=== PATIENT | male | born 1990 | race Caucasian/White ===

== ENCOUNTER 2020-01-17 12:48 | Emergency (ER) | payer OTHER ==
[~2020-01-17] VITALS: Ht 172.7 cm; Wt 63.5 kg
[2020-01-17 13:49] LABS: HEMATOCRIT 32.3 % (42.0-52.0); HEMOGLOBIN 11.3 gm/dL (14.0-18.0); MCH 30.9 pg (26.0-34.0); MCHC 35.2 g/dL (28.0-37.0); MCV 87.9 fL (80.0-100.0); MPV 6.9 fl. (7.2-11.1); NUCLEATED RBCS 0 /100WBC; PLATELET COUNT* 285 thou/uL (150-400); RBC 3.67 mil/uL (4.50-6.00); WBC 8.1 thou/uL (4.0-11.0)
[2020-01-17 13:58] LABS: CALCIUM 8.7 mg/dL (8.5-10.1); CREATININE 1.2 mg/dL (0.6-1.3); POTASSIUM 3.6 mmol/L (3.5-5.1)
[2020-01-17 14:02] LABS: ALBUMIN 2.8 g/dL (3.4-5.0); TOTAL BILIRUBIN 0.6 mg/dL (<0.1-1.0); TOTAL PROTEIN 7.3 g/dL (6.4-8.2)
[2020-01-17 14:15] LABS: ABSOLUTE EOSINOPHILS 0.1 thou/uL (0.0-0.7); ABSOLUTE LYMPHOCYTES 0.1 thou/uL (0.8-5.3); ABSOLUTE MONOCYTES 0.2 thou/uL (0.0-1.2); ABSOLUTE NEUTROPHILS 7.8 thou/uL (1.6-8.1); PLATELET ESTIMATE ADEQUATE
[2020-01-17 14:18] LABS: INFLUENZA A ANTIGEN Negative (Negative); INFLUENZA B ANTIGEN Negative (Negative)
[2020-01-17 14:25] LABS: URINE BLOOD NEGATIVE (Negative); URINE CLARITY CLEAR; URINE COLOR YELLOW; URINE GLUCOSE-RANDOM NEGATIVE (Negative); URINE KETONES 2+ (Negative); URINE LEUKOCYTES-REFLEX NEGATIVE (Negative); URINE NITRITE-REFLEX NEGATIVE (Negative); URINE PROTEIN 1+ (Negative)
[2020-01-17 14:26] LABS: ICTOTEST (BILI CONFIRMATORY) Negative (Negative); URINE BILIRUBIN 1+ (Negative)
[2020-01-17 14:34] LABS: MUCUS 4-6 Moderate strn/LPF (None Seen)
[2020-01-17 14:35] LABS: HYALINE CASTS 0-3 Few /LPF (None Seen)
[2020-01-17 14:36] LABS: BACTERIA-REFLEX None Seen /HPF (None Seen); CRYSTALS None Seen /LPF (None Seen); SQUAMOUS 0-3 Few /LPF (0-3); URINE RBC 0-2 Rare /HPF (0-2); URINE WBC-REFLEX 6-15 Few /HPF (0-5)
[2020-01-17] MEDS ORDERED: ZPAK PO (15:27)
[2020-01-17] MEDS ORDERED: ZOFRAN ODT4 MG PO (15:32)
[2020-01-17 15:48] VITALS: BP 115/61
[2020-01-18] MEDS ORDERED: REGLAN10 MG PO (23:22)
== END 2020-01-17 15:49 | disposition home or self-care (01) ==
LOC: M.ERS 12:48
PROVIDERS: Nurse Practitioner Psychiatric/Mental Health
DX: J18.9 Pneumonia, unspecified organism (principal); Z20.828 Contact with and (suspected) exposure to other viral communicable diseases; N50.811 Right testicular pain; R59.1 Generalized enlarged lymph nodes

== ENCOUNTER 2020-01-18 20:50 | Emergency (ER) | payer OTHER ==
[~2020-01-18] VITALS: Ht 172.7 cm; Wt 56.7 kg
[~2020-01-18 20:50] MED LIST: ZOFRAN ODT4 MG PO; ZPAK PO
[2020-01-18 21:50] LABS: HEMATOCRIT 33.9 % (42.0-52.0); HEMOGLOBIN 11.8 gm/dL (14.0-18.0); MCH 30.8 pg (26.0-34.0); MCHC 34.9 g/dL (28.0-37.0); MCV 88.1 fL (80.0-100.0); MPV 7.6 fl. (7.2-11.1); NUCLEATED RBCS 0 /100WBC; RBC 3.85 mil/uL (4.50-6.00); RDW-CV 12.9 % (10.5-14.5); WBC 10.7 thou/uL (4.0-11.0)
[2020-01-18 21:52] LABS: PLATELET COUNT* 387 thou/uL (150-400)
[2020-01-18 21:55] LABS: CALCIUM 9.3 mg/dL (8.5-10.1); CREATININE 1.4 mg/dL (0.6-1.3); POTASSIUM 3.7 mmol/L (3.5-5.1)
[2020-01-18 21:59] LABS: ALBUMIN 2.8 g/dL (3.4-5.0); TOTAL BILIRUBIN 0.5 mg/dL (<0.1-1.0); TOTAL PROTEIN 7.8 g/dL (6.4-8.2)
[2020-01-18 22:43] LABS: ABSOLUTE LYMPHOCYTES 0.4 thou/uL (0.8-5.3); ABSOLUTE MONOCYTES 0.3 thou/uL (0.0-1.2)
[2020-01-18 22:44] LABS: PLATELET ESTIMATE ADEQUATE
[2020-01-18] MEDS ORDERED: REGLAN10 MG PO (23:22)
[2020-01-18 23:29] VITALS: BP 111/70
== END 2020-01-18 23:30 | disposition home or self-care (01) ==
LOC: M.ERS 20:50
PROVIDERS: Emergency Medicine
DX: J18.9 Pneumonia, unspecified organism (principal); R11.2 Nausea with vomiting, unspecified; R10.13 Epigastric pain; R10.12 Left upper quadrant pain

== ENCOUNTER 2020-01-19 06:29 | Inpatient (IN) | payer OTHER ==
[~2020-01-19] VITALS: Ht 177.8 cm; Wt 60.3 kg
--- NOTE | ~2020-01-19 | CON ---
[address] [address] CONSULTATION Name: LAKEISHA JERONIMO Room: [address] IN .R.#: [id number] Admission: 01/19/20 Attend Phys: Andrade Dallas Discharge: Date of : 89 Report #: [id number] THIS REPORT FOR: //name// cc: ENRIQUE Cunningham family physician/PCP ENRIQUE - Marisa family physician/PCP ~ THIS REPORT FOR: //name// CC: ENRIQUE physician/PCP Mariposa Carvajal DATE OF SERVICE: 01/19/2020 CONSULT REQUESTED BY: Ron Haddad MD INDICATION FOR CONSULTATION: Pulmonary infiltrates. HISTORY OF PRESENT ILLNESS: A 29-year-old gentleman. He has no history of previous cardiac, respiratory or kidney disease. The patient reports that he was with friends this weekend at a [place]. The patient reported that a couple of days later, he started having significant symptoms. He has had a cough, but not much sputum. There is increase in shortness of breath. He has had a high-grade fever with chills. He has had significant nausea and vomiting and for the last couple of days, he has not had any food down. He says that it does cause him to have pain to take a deep breath. There is no swelling of lower extremities. There is no calf pain. He answers to the negative for 12 questions for review of systems except as mentioned above. He has had some abdominal pain though. PAST MEDICAL HISTORY: Hydrocele, right hip surgery. SOCIAL HISTORY: He has used marijuana. No other illegal drug use. No history of smoking. Rare alcohol use. ALLERGIES: No known drug allergies. FAMILY HISTORY: There is no pertinent family history. He was with friends as above recently when symptoms started soon after. However, there is no known contact with YAMINI-Terrie. CURRENT MEDICATIONS: List in [employer] reviewed. PHYSICAL EXAMINATION: GENERAL: He is alert, awake and oriented, does not appear to be in any distress. He had a bucket beside him because he has been having vomiting. VITAL SIGNS: Has a pulse of 104 and a blood pressure of 102/71. He is maintaining O2 saturation in the mid 90s [place] [address] CONSULTATION Name: LAKEISHA JERONIMO Room: [address]#: [id number] Admission: 01/19/20 Attend Phys: Andrade Dallas Discharge: Date of : 89 Report #: [id number] Respiratory rate is mildly elevated to 20. He is afebrile with a temperature of 37.9. He had a high-grade fever of 38.3 earlier. HEENT: Head is normocephalic and atraumatic. NECK: He does have some swelling and pain on the right side of his neck. There is mild erythema of the right neck as well. CHEST: Symmetrical expansion on inspection and palpation. On auscultation, there are significant rales at bilateral lung bases, some upper mid zones. HEART: Regular. There is no murmur. ABDOMEN: Soft and nontender. EXTREMITIES: Lower extremities show no edema, no calf tenderness. SKIN: Dry and intact. NEUROLOGICAL: He does move all extremities bilaterally equally and spontaneously with no focal deficit identified. LABORATORY DATA: The patient's COVID-19 antigen was negative, the PCR is pending. CBC and chemistries are in [email or web address]. These are reviewed. Elevation in creatinine to 1.4 this morning noted. Toxicology screen was positive for marijuana. Urinalysis is abnormal, but does not show nitrite and his leukocyte esterase negative. CT of the abdomen and pelvis report is in [employer]. This was reviewed. I reviewed the lower chest films which show extensive ground-glass infiltrates bilaterally also reviewed. ASSESSMENT/PLAN: 1. Extensive bilateral ground-glass infiltrates/suspected COVID-19. While other types of pneumonia can also lead to this picture, particularly for atypical organisms. I have a strong suspicion of COVID-19, PCR is pending. Even if this is negative, we will need to see the clinical picture and see if a repeat testing is indicated. Fully agree with dexamethasone. The patient is a potential candidate for remdesivir as well. Should he fail to improve or deteriorate and require supplemental oxygen, I recommend having a very low threshold of considering remdesivir. I also fully agree with Zithromax and ceftriaxone. We will continue with the same in fact I ordered him a dose of additional 1 gram of ceftriaxone now as well. We will order more cultures and serologies are also. 2. Right neck swelling/chest pain with respiration and coughing. I considered ordering a CTA chest as well as CT neck with IV dye. Held off because the patient's creatinine was elevated this morning and the patient has already received IV dye with a CT of the abdomen and pelvis. I ordered an ultrasound of the right neck now. We will review this. Subsequently, I perhaps will be inclined to consider ordering full dose anticoagulation in the next 24-48 hours. I will consider obtaining a CAT scan of the neck as well as a CTA chest if his D-dimer does come back elevated, which I have ordered and his creatinine improves. 3. Intractable nausea and vomiting. The primary suspicion is COVID-19. Certainly there are other etiologies as well. We will check a lipase as well. 4. Acute renal insufficiency. I would like to repeat electrolytes and [facility] [address] [place] [address] CONSULTATION Name: LAKEISHA JERONIMO Room: [address] IN M.R.#: [id number] Admission: 01/19/20 Attend Phys: Andrade Dallas Discharge: Date of : 89 Report #: [id number] creatinine now and see where we stand. We will adjust IV fluids accordingly. Agree with keeping him well hydrated. Thanks for this consultation. By: [id number] Motley MD /nt
[~2020-01-19 06:29] MED LIST changes: +REGLAN10 MG PO
[2020-01-19 06:35] VITALS: BP 116/72
[2020-01-19 06:51] LABS: HEMATOCRIT 31.6 % (42.0-52.0); MCH 30.7 pg (26.0-34.0); MCHC 34.9 g/dL (28.0-37.0); MCV 87.9 fL (80.0-100.0); MPV 6.9 fl. (7.2-11.1); NUCLEATED RBCS 0 /100WBC; PLATELET COUNT* 375 thou/uL (150-400); RDW-CV 13.1 % (10.5-14.5); WBC 11.1 thou/uL (4.0-11.0)
[2020-01-19 07:02] LABS: CALCIUM 8.7 mg/dL (8.5-10.1); CREATININE 1.4 mg/dL (0.6-1.3); POTASSIUM 3.5 mmol/L (3.5-5.1)
[2020-01-19 07:49] LABS: ABSOLUTE LYMPHOCYTES 0.4 thou/uL (0.8-5.3); ABSOLUTE MONOCYTES 0.2 thou/uL (0.0-1.2); ABSOLUTE NEUTROPHILS 10.4 thou/uL (1.6-8.1); ANISOCYTOSIS 1+; PLATELET ESTIMATE ADEQUATE; POIKILOCYTOSIS 1+
--- NOTE | 2020-01-19 08:15 | NUR ---
FABRIZIO NOTIFIED UPON PT RETURN FROM CT AND THAT PT IS IN THE RESTROOM
[2020-01-19 09:38] VITALS: BP 110/71
[2020-01-19 09:46] LABS: URINE BLOOD TRACE (Negative); URINE CLARITY CLEAR; URINE COLOR YELLOW; URINE GLUCOSE-RANDOM NEGATIVE (Negative); URINE LEUKOCYTES-REFLEX NEGATIVE (Negative); URINE NITRITE-REFLEX NEGATIVE (Negative); URINE PROTEIN 1+ (Negative); URINE UROBILINOGEN 0.2 E.U./dl (0.2-1.0)
[2020-01-19 09:51] LABS: ICTOTEST (BILI CONFIRMATORY) Negative (Negative); URINE BILIRUBIN 1+ (Negative); URINE KETONES 3+ (Negative)
[2020-01-19 10:22] VITALS: BP 102/71
--- NOTE | 2020-01-19 12:21 | NUR ---
RECEIEVED REPORT FROM FABRIZIO RN IN ER OF EXPECED ADMISSION AT 0932- DX: INTRACTABLE N/V, PNA- PT ARRIVED TO UNIT VIA CART, SBA TO BED- PT NOTED TO BE A&O X4- CONT OF B/B- UP AD-EZIO IN ROOM, STEADY GAIT NOTED- LCTA IN UPPER LOBES, CRACKLES BASES-CONTINUIOUS DRY COUGH NOTED- VS 100.3 20 102/71 104 96% ON RA- O2 APPLIED AT 2L PER PT REQUEST FOR COMFORT- ABD SOFT/FLAT/TENDER TO TOUCH- BS HYPOACTIVE- N/V NOTED AT TIME OF ADMISSION- PRN ZOFRAN GIVEN AT 1142- IV NOTED TO LEFT FA INTACT, IVB COMPLETED AND IVF INFUSSING PRESCRIBED- STAT COVID TEST REPORTED TO BE NEGATIVE- PT PLACED IN ISOLATION PENDING PCR COVID TESTING- PULM CONSULT NOTED- CLEAR LIQUIDS IN PLACE ORDERED- PT DENIES ANY OPEN AREAS/WOUNDS- PT REPORTS PAIN 8/10 TO ABD- CALL LIGHT AND PERSONAL BELONGINGS WITH IN REACH- PT MAKES NEEDS KNOWN- ALL NEEDS MET AT THIS TIME-WCTM
[2020-01-19 15:49] LABS: AMP/METHAMP Negative (Negative); BARBITURATES Negative (Negative); BENZODIAZEPINES Negative (Negative); COCAINE Negative (Negative); METHADONE Negative (Negative); OPIATES Negative (Negative); PCP Negative (Negative); THC POSITIVE (Negative)
[2020-01-19 16:00] VITALS: BP 112/72
[2020-01-19 16:29] LABS: CALCIUM 8.4 mg/dL (8.5-10.1); CREATININE 1.2 mg/dL (0.6-1.3); MAGNESIUM 1.7 mg/dL (1.8-2.4); POTASSIUM 3.9 mmol/L (3.5-5.1)
[2020-01-19 16:34] LABS: INR 1.2; PROTIME 12.4 Seconds (9.20-11.50)
[2020-01-19 21:34] VITALS: BP 97/86
[2020-01-20 04:32] VITALS: BP 119/40
[2020-01-20 07:16] LABS: ABSOLUTE BASOPHILS 0.1 thou/uL (0.0-0.2); ABSOLUTE LYMPHOCYTES 0.4 thou/uL (0.8-5.3); ABSOLUTE MONOCYTES 0.3 thou/uL (0.0-1.2); ABSOLUTE NEUTROPHILS 9.7 thou/uL (1.6-8.1); BASOPHILS 0.6 %; HEMATOCRIT 29.4 % (42.0-52.0); HEMOGLOBIN 10.2 gm/dL (14.0-18.0); LYMPHOCYTES 3.7 %; MCH 30.7 pg (26.0-34.0); MCHC 34.8 g/dL (28.0-37.0); MCV 88.3 fL (80.0-100.0); MONOCYTES 2.7 %; MPV 6.8 fl. (7.2-11.1); NUCLEATED RBCS 0 /100WBC; PLATELET COUNT* 352 thou/uL (150-400); RBC 3.33 mil/uL (4.50-6.00); RDW-CV 13.3 % (10.5-14.5); WBC 10.4 thou/uL (4.0-11.0)
[2020-01-20 07:33] LABS: CALCIUM 8.2 mg/dL (8.5-10.1); CREATININE 1.1 mg/dL (0.6-1.3); TOTAL BILIRUBIN 0.3 mg/dL (<0.1-1.0); TOTAL PROTEIN 6.2 g/dL (6.4-8.2)
[2020-01-20 08:00] VITALS: BP 104/77
--- NOTE | 2020-01-20 11:01 | NUR ---
ASSUMED CARE OF PATIENT THIS AM AT 0730. PATIENT IS ALERT AND ORIENTED X 4. HE DENIES PAIN,N AND VOMITING THIS AM. PATIENT ASSISTED UP TO THE SHOWER. HE HAS BEEN IN ISOLATION FOR POSSIBLE COVID. IV FLUIDS INFUSING PER ORDER. IV ANTIBIOTICS CONTINUED. WILL CONTINUE TO MONITOR COMFORT.
--- NOTE | 2020-01-20 11:26 | NUR ---
Called in to patients room admission assessment interview, pt in isolation. No answere at 08 am or 9:30 am.
[2020-01-20 20:00] VITALS: BP 114/75
--- NOTE | 2020-01-21 06:40 | NUR ---
ASSESSMENT COMPLETED AT BEDSIDE, PLEASE REFER TO CHARTING FOR DETAILS. MEDICATIONS ADMINISTERED PER MAR. PT HAD C/O N/V TREATED WITH PRN MEDICATIONS WITH NO RELIEF. PT HAD SHOWER X2 PT STATES THIS HELPS HIM WITH THE N/V. PT REMAINS ON CLEAR LIQUIDS, AND IV HYDRATION. PT IS UP AD EZIO IN ROOM AND IS CURRENTLY IN RECLINER WITH CALL LIGHT WITHIN.
[2020-01-21 07:35] LABS: HEMATOCRIT 27.7 % (42.0-52.0); HEMOGLOBIN 9.7 gm/dL (14.0-18.0); MCH 31.2 pg (26.0-34.0); MCHC 35.2 g/dL (28.0-37.0); MCV 88.7 fL (80.0-100.0); MPV 7.5 fl. (7.2-11.1); NUCLEATED RBCS 0 /100WBC; PLATELET COUNT* 375 thou/uL (150-400); RBC 3.12 mil/uL (4.50-6.00); RDW-CV 13.8 % (10.5-14.5); WBC 12.5 thou/uL (4.0-11.0)
[2020-01-21 07:53] LABS: CALCIUM 8.3 mg/dL (8.5-10.1); CREATININE 1.1 mg/dL (0.6-1.3); POTASSIUM 4.4 mmol/L (3.5-5.1); TOTAL BILIRUBIN 0.2 mg/dL (<0.1-1.0)
[2020-01-21 08:15] VITALS: BP 110/68
[2020-01-21 08:50] LABS: ABSOLUTE LYMPHOCYTES 0.8 thou/uL (0.8-5.3); ABSOLUTE MONOCYTES 0.1 thou/uL (0.0-1.2); ABSOLUTE NEUTROPHILS 11.6 thou/uL (1.6-8.1); PLATELET ESTIMATE ADEQUATE
--- NOTE | 2020-01-21 08:51 | NUR ---
CM COMPLETED INITIAL ASSESSMENT TO DISCUSS D/C PLANNING. CM DID NOT GO INTO PT'S ROOM D/T COVID PENDING. PT DID NOT ANSWER HIS ROOM PHONE. CM CONTACT PT'S STEP-MOM, DAMIR. PT LIVES [place]. PT IS ACTIVE AND INDEPENDENT W/CARES. PT IS EMPLOYEED AND DOES NOT HAVE A PCP. PT HAS 0 DMES. NO HX W/SNF.
[2020-01-21 12:00] VITALS: BP 126/84
[2020-01-21 13:50] VITALS: BP 110/70
--- NOTE | 2020-01-21 15:03 | NUR ---
pT C/O MIDSTERNAL BURNING CHEST PAIN. PT STATES "it started about 10 minutes ago. it is starting to go away" when asked pt denies history of cardiac disease, but states he has history of pleurisy but says "it didn't feel the same" dr nazario notified. see order for gi cocktail and protonix.
--- NOTE | 2020-01-21 15:06 | NUR ---
2410 pt was updated on conversation I had with dr nazario regarding his chest pain. pt instructed that 1 x dose of gi cocktail was available and that he is currently on protonix to decrease acid formation. pt verbalizes understanding but declines gi cocktail at this time
[2020-01-21 17:42] VITALS: BP 117/79
--- NOTE | 2020-01-21 19:34 | NUR ---
pt has remained alert, oriented and cooperative with staff. c/o nausea without emisis the majority of shift. remains on clear liquid diet. pt declines zofran/phenergan for relief of nausea. iv restart x 1. pt treated at end of shift for c/o nausea
[2020-01-21 20:00] VITALS: BP 117/83
[2020-01-22 04:00] VITALS: BP 123/82
[2020-01-22 05:06] LABS: ABSOLUTE LYMPHOCYTES 0.4 thou/uL (0.8-5.3); ABSOLUTE MONOCYTES 0.3 thou/uL (0.0-1.2); ABSOLUTE NEUTROPHILS 10.3 thou/uL (1.6-8.1); BASOPHILS 0.1 %; HEMATOCRIT 26.3 % (42.0-52.0); LYMPHOCYTES 3.9 %; MCH 30.4 pg (26.0-34.0); MCHC 34.4 g/dL (28.0-37.0); MCV 88.3 fL (80.0-100.0); MONOCYTES 2.9 %; MPV 7.2 fl. (7.2-11.1); NUCLEATED RBCS 0 /100WBC; PLATELET COUNT* 359 thou/uL (150-400); POLYS 93.1 %; RBC 2.98 mil/uL (4.50-6.00); RDW-CV 13.6 % (10.5-14.5)
[2020-01-22 05:33] LABS: CALCIUM 8.2 mg/dL (8.5-10.1); MAGNESIUM 2.2 mg/dL (1.8-2.4); POTASSIUM 4.4 mmol/L (3.5-5.1)
--- NOTE | 2020-01-22 05:36 | NUR ---
ASSESSMENT COMPLETED AT BEDSIDE, PLEASE REFER TO CHARTING FOR DETAILS. MEDICATIONS ADMINISTERED PER MAR. PT CONTIUNES TO HAVE N/V. PARTIAL RELIEF FROM ATIVAN. PT ALSO CONTINUES TO TAKE SHOWERS THROUGH OUT SHIFT TO HELP WITH N/V. PT HAS HAD POOR SLEEP PATTERNS, ADMISINISTERED SLEEP AID WITH LITTLE EFFECT. PT REMAINS IN ENHANCED PERCAUTIONS, CALL LIGHT WITHIN REACH.
[2020-01-22 08:00] VITALS: BP 128/70
--- NOTE | 2020-01-22 12:18 | NUR ---
Pt covid pending. Not currently requiring any o2. Pt is not eligible for [place] [facility] per [facility].
--- NOTE | 2020-01-22 16:59 | NUR ---
pt has remained alert, oriented x 4 and cooperative with staff. regular nonlabored respirations. no c/o or indication of respiratory distress. pt remains on clear liquid diet. medicated x 1 for c/o nausea. pt removed from enhanced isolation per dr graves. echo has been done and pt is currently being see by dr raymond. report called to zuly cox on med surg unit. reviewed admitting diagnosis, vital signs and am nursing assessment.
--- NOTE | 2020-01-22 17:01 | 2DMMODE ---
[place] [address] 2 D/M-MODE ECHOCARDIOGRAM Name: TODD JERONIMO Room: [address] [facility]#: [id number] Admission: 01/19/20 Attend Phys: Mariposa Carvajal Discharge: Date of : 89 Date of Service: 01/22/20 1701 Report #: [id number] THIS REPORT FOR: cc: FAM - No family physician/PCP FAM - No family physician/PCP Todd Funk MD [facility] ~ APPROVED REPORT Study performed: 01/22/2020 15:21:28 EXAM: Comprehensive 2D, Doppler, and color-flow Echocardiogram Patient Location: In-Patient Room #: [facility] Status: routine BSA: 1.75 HR: 52 bpm BP: 123/82 mmHg Rhythm: NSR Other Information Study Quality: Good Indications Dyspnea 2D Dimensions IVSd: 8.45 (7-11mm) LVOT Diam: 19.97 (18-24mm) LVDd: 43.10 mm PWd: 7.62 (7-11mm) Ascending Ao: 28.70 (22-36mm) LVDs: 32.04 (25-40mm) Aortic Root: 31.49 mm Volumes Left Atrial Volume (Systole) LA ESV Index: 31.30 mL/m2 Aortic Valve AoV Peak Grady.: 1.28 m/s AO Peak Gr.: 6.59 mmHg LVOT Max P.71 mmHg AO Mean Gr.: 3.23 mmHg LVOT Mean P.01 mmHg LVOT Max V: 1.08 m/s AO V2 VTI: 26.79 cm LVOT Mean V: 0.64 m/s MISAEL (VTI): 2.67 cm2 LVOT V1 VTI: 22.[place] [address] 2 D/M-MODE ECHOCARDIOGRAM Name: TODD JERONIMO Room: [address]#: [id number] Admission: 01/19/20 Attend Phys: Mariposa Carvajal Discharge: Date of : 89 Date of Service: 01/22/20 1701 Report #: [id number] Mitral Valve E/A Ratio: 3.30 MV Decel. Time: 213.41 ms MV E Max Grady.: 0.93 m/s MV PHT: 61.89 ms MVA (PHT): 3.55 cm2 TDI E/Lateral E': 4.43 E/Medial E': 5.81 Medial E' Grady.: 0.16 m/s Lateral E' Grady.: 0.21 m/s Pulmonary Valve PV Peak Grady.: 1.11 m/s PV Peak Gr.: 4.92 mmHg Tricuspid Valve RAP Estimate: 5.00 mmHg TR Peak Gr.: 21.80 mmHg RVSP: 26.00 mmHg PA Pressure: 26.00 mmHg Left Ventricle The left ventricle is normal size. There is normal LV segmental wall motion. There is normal left ventricular wall thickness. Left ventricular systolic function is normal. LVEF is 55-60%. The left ventricular diastolic function is normal. Right Ventricle Right ventricle is dilated. The right ventricular systolic function is normal. Atria The left atrium size is normal. The right atrium size is normal. Aortic Valve The aortic valve is normal in structure. No aortic regurgitation is present. There is no aortic valvular stenosis. Mitral Valve The mitral valve is normal in structure. Mild mitral regurgitation. No evidence of mitral valve stenosis. Tricuspid Valve The tricuspid valve is normal in structure. Mild tricuspid regurgitation. [place] [address] 2 D/M-MODE ECHOCARDIOGRAM Name: TODD JERONIMO Room: [address] [place] [facility]#: [id number] Admission: 01/19/20 Attend Phys: Mariposa Carvajal Discharge: Date of : 89 Date of Service: 01/22/20 1701 Report #: [id number] Pulmonic Valve The pulmonary valve is normal in structure. Trace pulmonic regurgitation. Great Vessels The aortic root is normal in size. IVC is normal in size and collapses >50% with inspiration. Pericardium There is no pericardial effusion. <Conclusion> The left ventricle is normal size. There is normal left ventricular wall thickness. Left ventricular systolic function is normal. LVEF is 55-60%. The left ventricular diastolic function is normal. Mild mitral regurgitation. Mild tricuspid regurgitation. No pulmonary hypertension. IVC is normal in size and collapses >50% with inspiration. <ELECTRONICALLY SIGNED> By: Todd Funk MD, FACC 01/22/201700 00 00 Todd Funk MD, FACC /INF
--- NOTE | 2020-01-22 17:11 | NUR ---
pt belongings packed. pt ambulated in company of communications officer to new room on 3rd floor
[2020-01-22 17:39] VITALS: BP 111/82
--- NOTE | 2020-01-22 19:28 | NUR ---
PT A&OX4 VSS. EPISODE OF N/V THIS EVENING SHORTLY AFTER ARRIVING ON UNIT. PRN ATIVAN ADMINISTERED WELL PANTOPRAZXOLE. IV TO LFA PATENT, DRESSING C/D/I. PT REQUESTS SHOWER TONINGHT. PT REMAINS ON CLEAR LIQUIDS TOLERATED. PT UP AD EZIO GAIT STEADY. PT TO BE NPO AFTER MIDNIGHT FOR SCOPE TOMORROW WITH GI. PT RESTS IN ROOM WITH CALL LIGHT IN REACH, WILL CONTINUE TO MONITOR.
[2020-01-22 20:00] VITALS: BP 109/65
[2020-01-22 23:06] LABS: MYCOPLASMA PNEUMONIA IgG <100 U/mL (0-99); MYCOPLASMA PNEUMONIA IgM <770 U/mL (0-769)
--- NOTE | 2020-01-23 07:38 | NUR ---
PATIENT TOOK TWO SHOWERS DURING THE NIGHT WANTING TO TAKE MORE. LINENS CHANGED EACH TIME. PT STRIPPED BED A THIRD TIME WANTING LINENS REPLACED. LINENS TAKEN TO ROOM AND PT TOLD SINCE HE WAS NOT SLEEPING IT WOULD BE A FEW MINUTES BEFORE THE WOULD BE REPLACED. PT BECAME ANGRY SAYING INDICATING WE FELT HE WAS A PAIN. PT REASSURED NO ONE FELT LIKE THIS. PT WANTED ARM WRAPPED SO HE COULD SHOWER A THIRD TIME. PT EDUCATED ON POSSIBILITY OF INFECTION THRU IV IF HE CONTINUED TO MESS WITH IV. DIRECTOR OF MATERIALS MANAGEMENT INFORMED AND SHE WAS SUPPORTIVE OF THIS DECISION. PT STATING HE NO LONGER WANTED SCAPALAMINE PATCH HE WAS STILL NAUSEATED. PT HAD TWO EPISODES OF CLEAR EMESIS, ONE WITH THREE SPECKS OF BLOOD. PT REFUSING ATIVAN SAYING IT DID NOT WORK HE VOMITED AFTER HAVING IT JUST PRIOR TO SHIFT CHANGE. PT ENCOURAGED TO TRY IT A SECOND TIME AND AGREED. PT SLEEPING IN CHAIR THE REST OF THE SHIFT. PT NPO SINCE MIDNIGHT.
[2020-01-23 08:20] VITALS: BP 112/64
[2020-01-23 09:46] LABS: ABSOLUTE LYMPHOCYTES 0.9 thou/uL (0.8-5.3); ABSOLUTE MONOCYTES 0.2 thou/uL (0.0-1.2); ABSOLUTE NEUTROPHILS 8.8 thou/uL (1.6-8.1); BASOPHILS 0.1 %; EOSINOPHILS 0.4 %; HEMATOCRIT 28.4 % (42.0-52.0); HEMOGLOBIN 9.8 gm/dL (14.0-18.0); LYMPHOCYTES 9.3 %; MCH 30.6 pg (26.0-34.0); MCHC 34.5 g/dL (28.0-37.0); MCV 88.8 fL (80.0-100.0); MPV 7.1 fl. (7.2-11.1); NUCLEATED RBCS 0 /100WBC; PLATELET COUNT* 412 thou/uL (150-400); POLYS 88.2 %; RDW-CV 13.4 % (10.5-14.5)
[2020-01-23 09:56] LABS: ALBUMIN 2.2 g/dL (3.4-5.0); CREATININE 1.1 mg/dL (0.6-1.3); POTASSIUM 3.7 mmol/L (3.5-5.1); TOTAL BILIRUBIN 0.4 mg/dL (<0.1-1.0); TOTAL PROTEIN 5.8 g/dL (6.4-8.2)
[2020-01-23 10:11] LABS: % SATURATION 19 % (20-39); IRON 24 ug/dL (50-175)
--- NOTE | 2020-01-23 14:00 | NUR ---
PT RETURNED TO UNIT FOLLOWING EGD.
[2020-01-23 16:00] VITALS: BP 103/65
--- NOTE | 2020-01-23 16:00 | NUR ---
PT.LIVES IN [place]. FOR SLIDING SCALE PAYMENT FOR FOLLOW UP -CAN CALL [facility][phone]. [employer]ED [employer].
[2020-01-23 20:00] VITALS: BP 92/50
--- NOTE | 2020-01-24 01:33 | NUR ---
INITAL ASSESMENT COMPLETED AT 1914. PT OUT OF SHOWER AT THAT TIME. T GIVE PO GEODON, IV ATIVAN AND IV PHENERGAN FOR TREATMENT OF NAUSEA. PT RECIEVING IV ATIVAN AND IV PHENERGA Q 6 HRS. PT HAD NUROUS REQUESTS AT START OF SHIFT. PT SLEEPING AFTER HS MEDS. CALL LIGHT IN REACH, PT DEMONSTRATES PROPER USE.
--- NOTE | 2020-01-24 04:43 | NUR ---
PT REFUSING TO ALLOW STAFF TO TAKE AM VITAL SIGNS. TECH UNCOVERED PT'S ARM TO PLACE BLOOD PRESSURE CUFF. PT WITHDREW ARM UNDER BLANKET AND WOULD NOT RESPOND WHEN ASKED TO EXPOSE ARM .
--- NOTE | 2020-01-24 05:05 | NUR ---
PT EXTREMELY SOMULANT AND DIFFICULT TO AROUSE. HOLDING AM LORAZEPAM AND PHENERGAN DUE TO HYPERSOMULANCE.
[2020-01-24 05:17] LABS: HEMATOCRIT 33.7 % (42.0-52.0); HEMOGLOBIN 11.3 gm/dL (14.0-18.0); MCHC 33.6 g/dL (28.0-37.0); MCV 89.3 fL (80.0-100.0); MPV 7.2 fl. (7.2-11.1); RBC 3.77 mil/uL (4.50-6.00); RDW-CV 13.5 % (10.5-14.5)
[2020-01-24 05:55] LABS: ALBUMIN 2.1 g/dL (3.4-5.0); CALCIUM 8.5 mg/dL (8.5-10.1); CREATININE 1.1 mg/dL (0.6-1.3); MAGNESIUM 2.3 mg/dL (1.8-2.4); TOTAL BILIRUBIN 0.5 mg/dL (<0.1-1.0)
[2020-01-24 06:04] LABS: POTASSIUM 4.7 mmol/L (3.5-5.1)
--- NOTE | 2020-01-24 06:24 | NUR ---
PT EXTREMELY SOMULAT THIS MORNINF AFTER RECIEVING PO GEODON, IV ATIVAN AND IV PHENERGAN. PT WAS AROUSABLE AND ALERT PRIOR TO MIDNIGHT DOSE. AT 0330 RT CAME FOR TREATMENT. PT WAS EXTREMELY DIFFICULT TO AROUSE. AM ATIVAN AND PHENERGAN TO GIVEN.
[2020-01-24 08:25] VITALS: BP 94/65
[2020-01-24 16:31] VITALS: BP 99/53
--- NOTE | 2020-01-24 16:58 | NUR ---
PATIENT UP AD EZIO THIS SHIFT. NO COMPLAINTS OF N/V OR PAIN. IV SL, SCHED ABX AND STEROID GIVEN ORDERED. SPOKE WITH DR. ALMARAZ AND YISSEL FOR REG DIET, TOLERATING. POSSIBLE DISCHARGE TO HOME TOMORROW.
[2020-01-24 20:26] VITALS: BP 110/53
[2020-01-25 04:17] LABS: HEMATOCRIT 31.5 % (42.0-52.0); HEMOGLOBIN 10.7 gm/dL (14.0-18.0); MCH 30.2 pg (26.0-34.0); MCHC 33.9 g/dL (28.0-37.0); MCV 89.1 fL (80.0-100.0); MPV 7.3 fl. (7.2-11.1); RBC 3.54 mil/uL (4.50-6.00); RDW-CV 13.4 % (10.5-14.5); WBC 14.8 thou/uL (4.0-11.0)
[2020-01-25 04:52] LABS: ALBUMIN 2.2 g/dL (3.4-5.0); CALCIUM 8.4 mg/dL (8.5-10.1); CREATININE 1.2 mg/dL (0.6-1.3); MAGNESIUM 1.9 mg/dL (1.8-2.4); TOTAL BILIRUBIN 0.4 mg/dL (<0.1-1.0)
--- NOTE | 2020-01-25 04:52 | NUR ---
PATIENT ALERT/ORIENTED X4. PT WITH SALINE LOCK IN LT FOREARM; ANTIBIOTICS INFUSING PER DR ORDER. PT REQUESTED PHENERGAN IV X1 FOR NAUSEA, LATER PT STATING HE WAS NOT NAUSEATED HE JUST WANTED SOMETHING TO PUT HIM TO SLEEP BECAUSE THE MELATONIN DID NOT WORK. PT UP AD EZIO IN ROOM; SHOWERED AND LINENS CHANGED X1. PT REQUESTED SEVERAL SNACKS THROUGHOUT THE NIGHT. TOLERATED WELL. PT DENIES PAIN. FREQUENTLY USED ITEMS AND CALL LIGHT WITHIN REACH. SIDERAILS UPX2. WILL CONTINUE TO MONITOR.
[2020-01-25 07:07] LABS: HIV-1/HIV-2 ANTIBODY Non Reactive (Non Reactive)
[2020-01-25 08:10] VITALS: BP 98/57
[2020-01-25] MEDS ORDERED: MIRALAX17 GM PO (09:45)
[2020-01-25] MEDS ORDERED: NEPHRO-VITE TA0.8 MG PO (09:45)
[2020-01-25] MEDS ORDERED: VENTOLIN HFA 1818 GM INH (09:45)
[2020-01-25] MEDS ORDERED: TRANSDERM-SCOP1 EACH TRANSDERM (09:45)
[2020-01-25] MEDS ORDERED: PROMS25 WY RECTAL (09:45)
[2020-01-25] MEDS ORDERED: PROTONIX 20 MG20 M1 PO (09:45)
[2020-01-25] MEDS ORDERED: IRON325 PO (09:45)
[2020-01-25] MEDS ORDERED: BENZONATATE100 MG PO (09:45)
[2020-01-25] MEDS ORDERED: BANOPHEN25 MG PO (09:45)
[2020-01-25 14:06] VITALS: BP 98/57
--- NOTE | 2020-01-25 14:40 | NUR ---
PATIENT DISCHARED TO HOME AT THIS TIME. TOLERATED REG DIET. PHENERGAN PRN GIVEN X 1 THIS AM. UP AD EZIO. IV DC'D, SCHED ABX RECEIVED THIS AM. PATIENT AMBULATED OUT WITH NURSING STAFF. VERBALIZED UNDERSTANDING OF PAPERWORK AND SCRIPTS SENT IN TO PHARMACY AND STEFANL CALLED IN NOTED.
--- NOTE | 2020-01-27 12:07 | PATH ---
[facility] [address] [place] [address] PATHOLOGY RPT PROCEDURE Name: TODD HERNÁNDEZ Room: [address] IN M.R.#: [id number] Admission: 01/19/20 Date of : 89 Discharge: 01/25/20 Report #: [id number] Path Case #: [id number] [facility] Accession Number: [id number] . 01 Material submitted: . PART A: stomach - GASTRIC BIOPSY FOR GASTRITIS PART B: esophagus - BIOPSY ESOPHAGUS IRREGULAR Z-LINE . 01 Clinical history: . INTRACTABLE N/V, PNA . 02 Diagnosis: A. Gastric biopsy: - Mild chronic gastritis suggesting reactive gastropathy (chemical gastritis), negative for Helicobacter pylori organisms and dysplasia. . B. Biopsy esophagus: - Benign esophageal and gastric/columnar types mucosa with moderate chronic inflammation typical of reflux, negative for goblet cells/diagnostic Hanson's metaplasia and dysplasia. (AGAPITO:paulette; 01/27/2020 . Special stain on A: H. pylori immuno QMS 01/27/2020 1125 Local . 02 Electronically signed: . Get Triana MD, Pathologist NPI- [id number] . 01 Gross description: . A. The specimen is received in formalin, labeled "Todd Hernández BX gastric" and consists of 4 fragments of pink-dye tissue measuring between 0.2 x 0.2 cm and 0.4 x 0.2 cm which are entirely submitted in A1. . B. The specimen is received in formalin, labeled "Todd Hernández BX esophagus" and consists of multiple fragments of dye tissue measuring 0.9 x 0.6 x 0.3 cm in aggregate which are entirely submitted in B1. (SDY; 01/26/2020) SYU/SYU 01/27/2020 1123 Local . 02 Pathologist provided ICD-10: K29.50, K20.9 . 02 CPT . 507709, 644370, [id number] Specimen Comment: A courtesy copy of this report has been sent to [phone] Specimen Comment: [address] [place] [address] PATHOLOGY RPT PROCEDURE Name: TODD HERNÁNDEZ Room: [address] IN .R.#: [id number] Admission: 01/19/20 Date of : 89 Discharge: 01/25/20 Report #: [id number] Path Case #: [id number] Specimen Comment: Report sent to / DR CASTRO Performed at: [address] [facility] [address], [place], [place] [address] MD Delfino Rajan MD Phone: [phone] Performed at: 02 [facility] [address] [address] [address], [place], [place] [id number] MD Get Triana MD Phone: [phone]
== END 2020-01-25 14:42 | disposition home or self-care (01) | DRG 391 ==
LOC: M.ERS 06:29 → M.TBA-ER 06:40 → M.2W 09:52 → M.3W 01-22 17:16
PROVIDERS: Emergency Medicine; Family Medicine; Internal Medicine; Internal Medicine Critical Care Medicine; Internal Medicine Gastroenterology; ADMIT Internal Medicine; ATTEND Internal Medicine
PROC: 0DB38ZX Excision of Lower Esophagus, Via Natural or Artificial Opening Endoscopic, Diagnostic (ICD-10-PCS; principal; 2020-01-23)
PROC: 0DB68ZX Excision of Stomach, Via Natural or Artificial Opening Endoscopic, Diagnostic (ICD-10-PCS; principal; 2020-01-23)
DX: K29.70 Gastritis, unspecified, without bleeding (principal); J18.9 Pneumonia, unspecified organism; R65.10 Systemic inflammatory response syndrome (SIRS) of non-infectious origin without acute organ dysfunction; Z68.1 Body mass index [BMI] 19.9 or less, adult; K62.5 Hemorrhage of anus and rectum; E86.0 Dehydration; F12.90 Cannabis use, unspecified, uncomplicated; R11.2 Nausea with vomiting, unspecified; N28.9 Disorder of kidney and ureter, unspecified; R63.4 Abnormal weight loss; D64.9 Anemia, unspecified; K21.0 Gastro-esophageal reflux disease with esophagitis; K44.9 Diaphragmatic hernia without obstruction or gangrene; K22.8 Other specified diseases of esophagus; Z20.828 Contact with and (suspected) exposure to other viral communicable diseases; T40.7X5A Adverse effect of cannabis (derivatives), initial encounter; Y92.89 Other specified places as the place of occurrence of the external cause; Z79.899 Other long term (current) drug therapy; Z72.89 Other problems related to lifestyle